=== PATIENT | male | born 1975 | race Caucasian/White ===

== ENCOUNTER 2018-12-24 09:39 | Inpatient (IN) | payer OTHER ==
[2018-12-24 10:38] VITALS: BMI 30.2
--- NOTE | 2018-12-24 11:43 | HP ---
COWS - Scale Resting Pulse: 0= [place] 80 or Below Sweatin= Chills/Flushing Restless Observation: 3= Extraneous Movement Pupil Size: 0= Normal to Room Light Bone or Joint Aches: 4=Acute Joint/Muscle Pain Runny Nose/ Eye Tearin= Runny Nose/Eyes GI Upset > 30mins: 2= Nausea/Diarrhea Tremor Observation: 0= None Yawning Observation: 1= 1-2x During Session Anxiety or Irritability: 2=Irritable/Anxious Goose Flesh Skin: 0=Smooth Skin COWS Score: 15 CIWA Score - Admission Criteria [facility] Guidelines: Admission for Medically Managed Detox: Requires at least one of the followin. CIWA greater than 12 2. Seizures within the past 24 hours 3. Delirium tremens within the past 24 hours 4. Hallucinations within the past 24 hours 5. Acute intervention needed for co occurring medical disorder 6. Acute intervention needed for co occurring psychiatric disorder 7. Severe withdrawal that cannot be handled at a lower level of care (continued vomiting, continued diarrhea, abnormal vital signs) requiring intravenous medication and/or fluids 8. Admission [facility] Allergies/Adverse Reactions: Allergies Allergy/AdvReac Type Severity Reaction Status Date / Time No Known Allergies Allergy Verified 12/24/18 10:24 History of Present Illness: Search Terms: barbara narayanan, 1975 Search Date: 12/24/2018 11:45:44 AM The Drug Utilization Report below displays all of the controlled substance prescriptions, if any, that your patient has filled in the last twelve months. The information displayed on this report is compiled from pharmacy submissions to the Department, and accurately reflects the information as submitted by the pharmacies. This report was requested by: Diamond Mortensen | Reference #: [id number] Others' Prescriptions Patient Name: Barbara Narayanan Date: 1975 Address: [address] [place] [address] Sex: Male Rx Written Rx Dispensed Drug Quantity Days Supply Prescriber Name 11/12/2018 11/12/2018 buprenorphine-naloxone 8-2 mg sl film 14 7 Kaushal Marino 08/24/2018 08/24/2018 suboxone 8 mg-2 mg sl film 60 30 Kaushal Marino MD 07/14/2018 07/20/2018 dextroamp-amphetamin 15 mg tab 60 30 Starr Montgomery 04/21/2018 07/16/2018 suboxone 8 mg-2 mg sl film 60 30 Kaushal Marino MD 06/16/2018 06/24/2018 dextroamp-amphetamin 15 mg tab 60 30 Starr Montgomery R 04/21/2018 06/21/2018 suboxone 8 mg-2 mg sl film 60 30 Kaushal Marino MD 04/21/2018 05/23/2018 suboxone 8 mg-2 mg sl film 60 30 Kaushal Marino MD 05/18/2018 05/18/2018 dextroamp-amphetamin 15 mg tab 60 30 Celeste Montgomeryine R 04/21/2018 04/21/2018 suboxone 8 mg-2 mg sl film 60 30 Kaushal Marino MD Patient Name: Barbara Narayanan Date: 1975 Address: [address] [place] [address] Sex: Male Rx Written Rx Dispensed Drug Quantity Days Supply Prescriber Name 05/12/2018 05/12/2018 dextroamp-amphetamin 15 mg tab 5 10 Liz Marinelli MD 04/08/2018 04/17/2018 dextroamp-amphetam 7.5 mg tab 30 30 Starr Montgomery Ti pt here requesting detox from heroin use, reports use x 22 years ( since 1996 ) , current daily use 2 gr/day = 20 bags IVDU in [facility] , needles from the pharmacy , denies sharing , + re-using , + abscess did not seek medical attention , OD x 3 , most recently a few months ago no hospitalization, Narcan from " somebody who was there " , latest use yesterday 4 pm , current symptoms as above,. Longest sobriety 4-5 years while incarcerated for drug- related charges , total lifetime incarceration , currently on probation . States was in Suboxone outpt program as noted above , stopped going 2/2 financial issues. reports sobriety whilst in program , planning to return after detox. tobacco : denies denies other illicits or etoh utox : + fentanyl, oxy, opi PMHX : hep C dx 2009 , no tx PSHx : [facility] kidneys stenting 1995 , Left FA ORIF 2009 2/2 frx , hardware in place psych : adhd , bpd , depression , denies SI / HI SHx : homeless , unemployed , finances habit through illicit activities Exam Limitations: Clinical Condition - Ebola screening Have you traveled outside of the country in the last 21 days: No ([place]) Have you had contact with anyone from an Ebola affected area: No Do you have a fever: No - Review of Systems Constitutional: See HPI EENT: reports: See HPI Respiratory: reports: No Symptoms reported Cardiac: reports: No Symptoms Reported GI: reports: See HPI : reports: No Symptoms Reported Musculoskeletal: reports: See HPI, Muscle Pain Integumentary: reports: See HPI Neuro: reports: No Symptoms reported Endocrine: reports: No Symptoms Reported Psychiatric: reports: Orientated x3, Agitated, Anxious Patient History - Smoking Cessation Smoking history: Unknown if ever smoked - Substances abused Heroin Substance route: Injection Frequency: Daily Amount used: 2 grams- 100 Age of first use: 21 Date of last use: 12/23/18 Family Disease History - Family Disease History Family History: Denies Other Family History: no children Admission Physical Exam BHS - Vital Signs Vital Signs: Vital Signs - 24 hr 12/24/18 12/24/18 10:33 11:12 Temperature 98.0 F 98.0 F Pulse Rate 56 L 56 L Respiratory 18 18 Rate Blood Pressure 136/92 136/92 - Physical General Appearance: Yes: Disheveled, Sweating, Anxious HEENTM: Yes: EOMI, Hearing grossly Normal, Normocephalic, Normal Voice, Nasal Congestion, Rhinorrhea Respiratory: Yes: Chest Non-Tender, Lungs Clear, Normal Breath Sounds Neck: Yes: No masses,lesions,Nodules, Trachea in good position Cardiology: Yes: Regular Rhythm, Regular Rate, S1, S2 Abdominal: Yes: Non Tender, Soft Back: Yes: Normal Inspection Musculoskeletal: Yes: full range of Motion, Gait Steady Extremities: Yes: Normal Range of Motion, Non-Tender, Other (surgical scar left FA) Neurological: Yes: Motor Strength 5/5 Integumentary: Yes: Warm, Track Rod - Diagnostic (1) Opioid dependence Current Visit: Yes Status: Acute Qualifiers: Substance use status: in withdrawal Qualified Code(s): F11.23 - Opioid dependence with withdrawal Breathalyzer - Breathalyzer Breathalyzer: 0 Urine Drug Screen - Test Device Lot number: [id number] Expiration date: 09/17/20 - Control Is test valid?: Yes - Results Drug screen NEGATIVE: No Urine drug screen results: FEN-Fentanyl, MOP-Opiates, OXY-Oxycodone Inpatient Rehab Admission - Rehab Decision to Admit Inpatient rehab admission?: No
[2018-12-24] MEDS ORDERED: ACETAMINOPHEN 325 MG TABLET (FP) PO PRN ×2 (11:51)
[2018-12-24] MEDS ORDERED: IBUPROFEN 400 MG TABLET (FP) PO PRN (11:51)
[2018-12-24] MEDS ORDERED: MAG HYDROX/AL HYDROX/SIMETH 30 ML UNIT-DOSE CUP PO PRN (11:51)
[2018-12-24] MEDS ORDERED: MAGNESIUM HYDROX 2400MG/30ML ORAL SUSPENSION 30 ML CUP PO PRN (11:51)
[2018-12-24] MEDS ORDERED: DICYCLOMINE HCL 10 MG CAPSULE PO PRN (11:51)
[2018-12-24] MEDS ORDERED: MENTHOL/PHENOL 1 EACH UD MM PRN (11:51)
[2018-12-24] MEDS ORDERED: MAGNESIUM CITRATE 300 ML BOTTLE PO PRN (11:51)
[2018-12-24] MEDS ORDERED: MELATONIN 5 MG TABLETS PO PRN (11:51)
[2018-12-24] MEDS ORDERED: METHADONE HCL 10 MG TABLET (FOR DETOX USE ONLY) PO ONE (12:45)
[2018-12-24 17:49] LABS: HEMATOCRIT 44.6 % (35.4-49); HEMOGLOBIN 14.6 GM/dL (11.7-16.9); MCH 28.4 pg (25.7-33.7); MCHC 32.8 g/dl (32.0-35.9); MEAN CELL VOLUME 86.7 fl (80-96); MEAN PLT VOLUME 10.5 fl (7.5-11.1); PLATELET COUNT 192 K/MM3 (134-434); RBC 5.14 M/mm3 (4.00-5.60); RDW 14.5 % (11.9-15.9); WHITE BLOOD COUNT 7.1 K/mm3 (4.0-10.0)
[2018-12-24 18:02] LABS: ALBUMIN 3.9 g/dl (3.4-5.0); BILIRUBIN,TOTAL 0.5 mg/dL (0.2-1); CALCIUM 9.1 mg/dL (8.5-10.1); CREATININE 0.8 mg/dL (0.55-1.3); POTASSIUM 4.2 mmol/L (3.5-5.1); TOT PROT 7.2 g/dl (6.4-8.2)
[2018-12-24] MEDS: METHOCARBAMOL 500 MG TABLET PO PRN (20:55)
[2018-12-24] MEDS: cloNIDine HCL 0.1 MG TABLET PO PRN (20:55)
[2018-12-24] MEDS: hydrOXYzine PAMOATE 25 MG CAPSULE (FP) PO PRN (20:55)
[2018-12-25] MEDS: THIAMINE HCL 100 MG TABLET (FP) PO SCH ×2 (00:15→23:09)
[2018-12-25] MEDS ORDERED: TRIMETHOBENZAMIDE HCL 300 MG CAPSULE PO PRN (08:34)
[2018-12-25] MEDS ORDERED: BACLOFEN 10 MG TABLET (FP) PO ONE (09:21)
--- NOTE | 2018-12-25 09:53 | PN ---
BHS COWS - Scale Resting Pulse: 0= [place] 80 or Below Sweatin=Flushed/Facial Moisture Restless Observation: 1= Difficult to Sit Still Pupil Size: 0= Normal to Room Light Bone or Joint Aches: 2= Severe Diffuse Aches Runny Nose/ Eye Tearin= Runny Nose/Eyes GI Upset > 30mins: 2= Nausea/Diarrhea Tremor Observation of Outstretched Hands: 2= Slight Tremor Visible Yawning Observation: 2= >3x During Session Anxiety or Irritability: 2=Irritable/Anxious Goose Flesh Skin: 0=Smooth Skin COWS Score: 15 BHS Progress Note (SOAP) Subjective: body aches sweats shakes abdominal ache low appetite Objective: 12/25/18 09:55 Vital Signs Temperature 97.9 F 12/25/18 09:52 Pulse Rate 63 12/25/18 09:52 Respiratory Rate 18 12/25/18 09:52 Blood Pressure 121/55 L 12/25/18 09:52 O2 Sat by Pulse Oximetry (%) Laboratory Tests 12/24/18 12/24/18 13:55 13:55 WBC 7.1 RBC 5.14 Hgb 14.6 Hct 44.6 MCV 86.7 MCH 28.4 MCHC 32.8 RDW 14.5 Plt Count 192 MPV 10.5 D Sodium 139 Potassium 4.2 Chloride 106 Carbon Dioxide 25 Anion Gap 8 BUN 11 Creatinine 0.8 Est GFR (CKD-EPI)AfAm 125.92 Est GFR (CKD-EPI)NonAf 108.65 Random Glucose 109 H Calcium 9.1 Total Bilirubin 0.5 AST 23 ALT 24 Alkaline Phosphatase 80 Total Protein 7.2 Albumin 3.9 aaox3 ambulating no acute distress Assessment: 12/25/18 09:56 withdrawal sx Plan: continue detox increase fluids ensure bid baclofen tid
[2018-12-25] MEDS ORDERED: METHADONE HCL 10 MG TABLET (FOR DETOX USE ONLY) PO ONE (10:00)
[2018-12-25] MEDS: PRENATAL VITAMINS W/ FOLIC ACID TABLET (FP) PO SCH (10:24)
--- NOTE | 2018-12-25 10:25 | PN ---
BHS COWS - Scale Resting Pulse: 0= [place] 80 or Below Sweatin=Flushed/Facial Moisture Restless Observation: 1= Difficult to Sit Still Pupil Size: 0= Normal to Room Light Bone or Joint Aches: 2= Severe Diffuse Aches Runny Nose/ Eye Tearin= Runny Nose/Eyes GI Upset > 30mins: 2= Nausea/Diarrhea Tremor Observation of Outstretched Hands: 2= Slight Tremor Visible Yawning Observation: 2= >3x During Session Anxiety or Irritability: 2=Irritable/Anxious Goose Flesh Skin: 0=Smooth Skin COWS Score: 15 BHS Progress Note (SOAP) Subjective: body aches sweats shakes body aches interrupted sleep low appetite Objective: 12/25/18 10:25 Vital Signs Temperature 97.9 F 12/25/18 09:52 Pulse Rate 63 12/25/18 09:52 Respiratory Rate 18 12/25/18 09:52 Blood Pressure 121/55 L 12/25/18 09:52 O2 Sat by Pulse Oximetry (%) Laboratory Tests 12/24/18 12/24/18 13:55 13:55 WBC 7.1 RBC 5.14 Hgb 14.6 Hct 44.6 MCV 86.7 MCH 28.4 MCHC 32.8 RDW 14.5 Plt Count 192 MPV 10.5 D Sodium 139 Potassium 4.2 Chloride 106 Carbon Dioxide 25 Anion Gap 8 BUN 11 Creatinine 0.8 Est GFR (CKD-EPI)AfAm 125.92 Est GFR (CKD-EPI)NonAf 108.65 Random Glucose 109 H Calcium 9.1 Total Bilirubin 0.5 AST 23 ALT 24 Alkaline Phosphatase 80 Total Protein 7.2 Albumin 3.9 aaox3 ambulating no acute distress Assessment: 12/25/18 10:25 withdrawal sx Plan: continue detox increase fluids ensure plus 120ml po bid baclofen tid
[2018-12-25] MEDS: BACLOFEN 10 MG TABLET (FP) PO SCH ×2 (15:26→23:09)
[2018-12-25] MEDS: cloNIDine HCL 0.1 MG TABLET PO PRN (20:13)
[2018-12-25] MEDS: METHOCARBAMOL 500 MG TABLET PO PRN (20:13)
[2018-12-25] MEDS: hydrOXYzine PAMOATE 25 MG CAPSULE (FP) PO PRN (20:13)
[2018-12-26] MEDS: BACLOFEN 10 MG TABLET (FP) PO SCH (07:14)
[2018-12-26 09:55] VITALS: BP 152/81; PULSE 79; TEMP 98.2
[2018-12-26] MEDS ORDERED: METHADONE HCL 10 MG TABLET (FOR DETOX USE ONLY) PO ONE (10:00)
[2018-12-26] MEDS: PRENATAL VITAMINS W/ FOLIC ACID TABLET (FP) PO SCH (10:02)
--- NOTE | 2018-12-26 11:31 | PN ---
BHS Progress Note (SOAP) Subjective: c/o sweats and tremor Objective: 12/26/18 11:30 Vital Signs 12/26/18 12/26/18 08:10 09:55 Temperature 98.4 F 98.2 F Pulse Rate 56 L 79 Respiratory 16 18 Rate Blood Pressure 133/75 152/81 Assessment: 12/26/18 11:30 AOX3, in no distress mild withdrawal symptoms persist. Plan: continue detox.
--- NOTE | 2018-12-26 11:34 | PN ---
BHS COWS - Scale Resting Pulse: 0= [place] 80 or Below Sweatin=Flushed/Facial Moisture Restless Observation: 1= Difficult to Sit Still Pupil Size: 0= Normal to Room Light Bone or Joint Aches: 1= Mild Discomfort Runny Nose/ Eye Tearin= None GI Upset > 30mins: 0= None Tremor Observation of Outstretched Hands: 2= Slight Tremor Visible Yawning Observation: 1= 1-2x During Session Anxiety or Irritability: 0= None Goose Flesh Skin: 0=Smooth Skin COWS Score: 7
--- NOTE | 2018-12-26 13:42 | DS ---
[facility] Detox Discharge Summary Admission Date: 12/24/18 Discharge Date: 12/26/18 (Pt left AMA) - History Present History: Opioid Dependence Additional Comments: Pt left AMA and did not complete his detox protocol. Pt refused to wait for the practitioner to talk to him. As per counselor's notes "PT ASID HE HAS SIG OTHER ON 3RD FLOOR DETOX. THIS WORKER WENT DOWN AND DID TALK WITH HER BUT THE COUNSELOR IS VERY BUSY AND CAN'T LET HIM TALK UNTIL LATER THIS EVENING.PT STATES HE'S TOLD THAT THE WORKER WILL RING HIM DOWN TO SPEAK WIHT HER AND THAT WE WILL GET HIM MONEY TO ATTEND [facility] IN [place] FRIDAY / THIS WORKER SAID HE HAS NO FUNDS FOR SUCH A THING, AND NOTHING WAS TOLD TO HIM ABOUT SUCH". Pertinent Past History: Opiate use disorder - Physical Exam Results Vital Signs: Vital Signs Temperature 98.2 F 12/26/18 09:55 Pulse Rate 79 12/26/18 09:55 Respiratory Rate 18 12/26/18 09:55 Blood Pressure 152/81 12/26/18 09:55 O2 Sat by Pulse Oximetry (%) Lab Results WBC 7.1 K/mm3 (4.0-10.0) 12/24/18 13:55 RBC 5.14 M/mm3 (4.00-5.60) 12/24/18 13:55 Hgb 14.6 GM/dL (11.7-16.9) 12/24/18 13:55 Hct 44.6 % (35.4-49) 12/24/18 13:55 MCV 86.7 fl (80-96) 12/24/18 13:55 MCHC 32.8 g/dl (32.0-35.9) 12/24/18 13:55 RDW 14.5 % (11.9-15.9) 12/24/18 13:55 Plt Count 192 K/MM3 (134-434) 12/24/18 13:55 Sodium 139 mmol/L (136-145) 12/24/18 13:55 Potassium 4.2 mmol/L (3.5-5.1) 12/24/18 13:55 Chloride 106 mmol/L (98-107) 12/24/18 13:55 Carbon Dioxide 25 mmol/L (21-32) 12/24/18 13:55 Anion Gap 8 MMOL/L (8-16) 12/24/18 13:55 BUN 11 mg/dL (7-18) 12/24/18 13:55 Creatinine 0.8 mg/dL (0.55-1.3) 12/24/18 13:55 Random Glucose 109 mg/dL (74-106) H 12/24/18 13:55 Calcium 9.1 mg/dL (8.5-10.1) 12/24/18 13:55 Labs noted. - Treatment Hospital Course: Detox Protocol Followed (pt did not complete his detox protocol. Left AMA.) - Medication Discharge Medications: Ambulatory Orders NK [No Known Home Medication] 12/23/18 - Diagnosis (1) Opioid dependence Current Visit: Yes Status: Acute Qualifiers: Substance use status: in withdrawal Qualified Code(s): F11.23 - Opioid dependence with withdrawal - AMA Did Patient Leave Against Medical Advice: Yes
[2018-12-27] MEDS ORDERED: METHADONE HCL 10 MG TABLET (FOR DETOX USE ONLY) PO ONE (10:00)
[2018-12-28] MEDS ORDERED: METHADONE HCL 5 MG TABLET (FOR DETOX USE ONLY) PO ONE (06:00)
== END 2018-12-26 12:53 | disposition left against medical advice (07) | DRG 770 ==
LOC: YASAS 09:39 → Y6N 12:19
PROVIDERS: ADMIT Surgery; ATTEND Surgery
PROC: HZ2ZZZZ Detoxification Services for Substance Abuse Treatment (ICD-10-PCS; principal; 2018-12-24)
DX: F11.23 Opioid dependence with withdrawal (principal); B18.2 Chronic viral hepatitis C; Z59.0 Homelessness
CPT/HCPCS: 36415; 80053; 85027; 86593; J0475; J0735